=== PATIENT | male | born 1940 | race African-American/Black ===

== ENCOUNTER 2017-05-06 17:14 | Emergency (ER) | payer OTHER ==
[~2017-05-06] VITALS: Ht 180.3 cm; Wt 99.8 kg
[2017-05-06 17:14] VITALS: BP 187/91
--- NOTE | 2017-05-06 17:28 | NUR ---
PT BIBA TO BED 10.
--- NOTE | 2017-05-06 17:30 | NUR ---
Note undone in EDM - 05/06/17 at 1845 by MED1 76M BIBA C/O SHORTENSS OF BREATH X TODAY; PER [facility], PT HAS HAD COUGH X 3 DAYS; [facility] STATES FAMILY WAS TAKING PT TO [facility], BUT PULLED OVER BECAUSE PT WAS HAVING SOB; [facility] STATES PT O2 SAT 88% ON ROOM AIR ON ARRIVAL; PT PRESENTS TO ER WITH NON-REBREATHER AND O2 SAT 100% ON ROOM AIR AT THIS TIME; PT AWAKE, ALERT, AND ORIENTED AT THIS TIME. ER NOTIFIED. HX: LUNG CANCER (MISSING HALF OF RIGHT LUNG), HTN
--- NOTE | 2017-05-06 17:30 | NUR ---
76M BIBA C/O SHORTENSS OF BREATH X TODAY; PER [facility], PT HAS HAD COUGH X 3 DAYS; [facility] STATES FAMILY WAS TAKING PT TO [facility], BUT PULLED OVER BECAUSE PT WAS HAVING SOB; [facility] STATES PT O2 SAT 88% ON ROOM AIR ON ARRIVAL; PT PRESENTS TO ER WITH NON-REBREATHER AND O2 SAT 100% ON ROOM AIR AT THIS TIME; PT AWAKE, ALERT, AND ORIENTED AT THIS TIME. ER MD NOTIFIED. HX: LLL REMOVED, HTN.
[2017-05-06] MEDS ORDERED: ALBUTEROL SULFATE/IPRATROPIU 3 ML SOL IH ONE ×2 (17:50→23:05)
--- NOTE | 2017-05-06 17:56 | NUR ---
RT AT BEDSIDE.
--- NOTE | 2017-05-06 18:01 | NUR ---
X RAY AT BEDSIDE.
--- NOTE | 2017-05-06 18:01 | NUR ---
RT AT BEDSIDE
--- NOTE | 2017-05-06 18:01 | NUR ---
Max nguyễn in [facility] - 05/06/17 at 1801 by MED1 RT AT BEDSIDE
--- NOTE | 2017-05-06 18:47 | NUR ---
DAUGHTER AT BEDSIDE
--- NOTE | 2017-05-06 18:59 | NUR ---
Patient being evaluated by DR HYATT at bedside.
[2017-05-06] MEDS ORDERED: LEVOFLOXACIN 750 MG/D5W PREMIX 150 ML IV ONE (19:10)
--- NOTE | 2017-05-06 19:10 | NUR ---
Pt report given to MAYELA HANEY. Transfer of care at this time.
[2017-05-06 19:11] LABS: BASOPHILS # (AUTO) 0.2 K/uL (0.00-0.22); BASOPHILS % (AUTO) 1.5 % (0.0-2.0); EOSINOPHILS % (AUTO) 0.2 % (0.0-4.0); HEMATOCRIT 44.5 % (36-52); HEMOGLOBIN 14.4 g/dL (12.0-18.0); LYMPHOCYTES # (AUTO) 1.7 K/uL (2.0-11.5); LYMPHOCYTES % (AUTO) 13.3 % (20.5-51.1); MEAN CORPUSCULAR HEMOGLOBIN 27 pg (27-31); MEAN CORPUSCULAR HGB CONC 33 g/dL (33-37); MEAN CORPUSCULAR VOLUME 83 fL (80-94); MONOCYTES # (AUTO) 0.9 K/uL (0.8-1.0); MONOCYTES % (AUTO) 7.3 % (1.7-9.3); NEUTROPHILS # (AUTO) 10.1 K/uL (1.8-7.7); NEUTROPHILS % (AUTO) 77.7 % (42.2-75.2); PLATELET COUNT (AUTO) 211 K/uL (140-450); RED BLOOD CELL COUNT(AUTO) 5.38 MIL/uL (4.20-6.10); RED CELL DISTRIBUTION WIDTH 15.1 % (11.6-13.7); WHITE BLOOD COUNT (AUTO) 12.9 K/uL (4.8-10.8)
[2017-05-06 19:14] LABS: ANION GAP 12.7 (8-16); CARBON DIOXIDE 26.8 mmol/L (21-32); CHLORIDE 97 mmol/L (98-107); CREATININE 1.7 mg/dL (0.7-1.3); GLUCOSE 108 mg/dL (74-106); POTASSIUM 3.5 mmol/L (3.5-5.1); SODIUM SERUM 133 mmol/L (136-145); UREA NITROGEN, BLOOD 16 mg/dL (7-18)
[2017-05-06 19:21] LABS: ALBUMIN 3.5 g/dL (3.4-5.0); ASPARTATE AMINOTRANSFERASE 45 U/L (15-37); LIPASE 57 U/L (73-393); TOTAL BILIRUBIN 0.6 mg/dL (0.0-1.0)
--- NOTE | 2017-05-06 19:52 | NUR ---
Respiratory Therapist at bedside for respiratory intervention.
[2017-05-06 21:04] LABS: PROTHROMBIN TIME 10.9 secs (10.8-13.4)
[2017-05-06] MEDS ORDERED: ASPIRIN 325 MG TAB PO ONE (21:20)
[2017-05-06] MEDS ORDERED: hydrALAZINE 20 MG/ML VIAL IVP STA (23:17)
--- NOTE | 2017-05-06 23:41 | NUR ---
PT RESTING IN BED, DENIES ANY CHEST PAIN, ON MONITOR, NSR. WILL CONT TO MIONITOR VSS.
--- NOTE | 2017-05-07 01:41 | NUR ---
PT RESTING IN BED, DAUGHTER AT BEDSIDE. PT AND FAMILY TOLD THAT WILL CONT AWATING FOR [place] CALL BACK WITH A ROOM NUMBER.
--- NOTE | 2017-05-07 02:15 | NUR ---
Patient to be transferred to [facility]. Is being transferred due to CONTINUATION OF CARE. Receiving facility has accepting physician and available space. ER physician has signed transfer form. Patient or responsible green party has agreed to transfer and signed form. Patient belongings inventoried and will be sent with patient. Copy of nursing notes, lab reports, EKG, Physicians Orders and X-rays to be sent with patient. Report called to AMPARO PERALTA RN at receiving facility. [facility] ambulance service has been called for transfer. ETA is 45 MINUTES.
[2017-05-07 02:59] VITALS: BP 159/68
--- NOTE | 2017-05-07 02:59 | NUR ---
PT TAKEN BY [facility] TO [facility]
== END 2017-05-07 02:59 | disposition short-term general hospital (02) ==
LOC: MED 17:14
DX: I21.4 Non-ST elevation (NSTEMI) myocardial infarction (principal); J18.9 Pneumonia, unspecified organism; R09.02 Hypoxemia; I10 Essential (primary) hypertension
CPT/HCPCS: 36415; 36600; 71045; 80053; 82803; 83605; 83690; 84484; 85025; 85610; 87040; 87804; 93005; 94640; 96365; 96375; 99291; J0360; J1956; J7620; Q0092